=== PATIENT | female | born 1990 | race Caucasian/White ===

== ENCOUNTER 2016-12-24 21:36 | Emergency (ER) | payer MEDICAID ==
[2016-12-24] MEDS ORDERED: HALOPERIDOL LACT 5 MG/ML INJ ONE (21:45)
[2016-12-24] MEDS ORDERED: HALOPERIDOL LACT 5 MG/ML INJ IV ONE (21:46)
[2016-12-24 21:50] VITALS: TEMP 98.4
--- NOTE | 2016-12-24 21:50 | EDPHY ---
H & P Source: Patient, EMS Exam Limitations: No limitations - Medical/Surgical History Hx Asthma: No Hx Chronic Respiratory Disease: No Hx Diabetes: No Hx Cardiac Disease: No Hx Renal Disease: No Hx Cirrhosis: No Hx Alcoholism: No Other PMH: Seizures - Family History Significant Family History: Hypertension - Social History Smoking Status: Never smoked Alcohol Use: Occasionally Drug Use: Marijuana Time Seen by Provider: 12/24/16 21:41 HPI/ROS: CHIEF COMPLAINT: Altered mental status HISTORY OF PRESENT ILLNESS: The patient is a 26-year-old female with a history of seizure disorder on Lamictal whose boyfriend called EMS tonight because he collapsed in the bathroom had a couple of convulsions and then seem to have a panic attack. He states that this does not seem like her typical seizures. She is not postictal and did not have many contractions. There is no sign of injury. She has been drinking heavily today. Boyfriend denies any co ingestants. The patient is hyperventilating and asking where she is and if she has clothes on cetera. She then seems to calm down and fall asleep temporarily and then wake up again hyperventilating and panicking. She was given 5 of IV Valium by EMS. This did not change her symptoms or presentation. boyfriend states that she does have a history of an anxiety disorder as well. She does not take any medications other than Lamictal. REVIEW OF SYSTEMS: Unable to obtain secondary to condition EXAM: GENERAL: Well-appearing, well-nourished and in no acute distress. HEAD: Atraumatic, normocephalic. EYES: Mildly red conjunctiva, Pupils equal 3, round and reactive to light, extraocular movements intact, sclera anicteric. ENT: TMs normal, nares patent, oropharynx clear without exudates. Moist mucous membranes. NECK: Normal range of motion, supple without lymphadenopathy or JVD. LUNGS: Breath sounds clear to auscultation bilaterally and equal. No wheezes rales or rhonchi. HEART: Regular rate and rhythm without murmurs, rubs or gallops. ABDOMEN: Soft, nontender, normoactive bowel sounds. No guarding, no rebound. No masses appreciated. BACK: No CVA tenderness, no spinal tenderness, step-offs or deformities EXTREMITIES: Normal range of motion, no pitting or edema. No clubbing or cyanosis. NEUROLOGICAL: Cranial nerves II through XII grossly intact. Asking questions, painting, moving all extremities. 5/5 strength, normal movement in all extremities PSYCH: Anxious, hyperventilating, alternating with sleeping. Able to respond to environment SKIN: Warm, dry, normal turgor, no visible rashes or lesions. (Rolando Mariee) Constitutional: Initial Vital Signs Temperature (C) 36.9 C 12/24/16 21:36 Heart Rate 120 H 12/24/16 21:36 Respiratory Rate 24 H 12/24/16 21:36 Blood Pressure 124/77 H 12/24/16 21:36 O2 Sat (%) 98 12/24/16 21:36 O2 Delivery Mode Room Air Allergies/Adverse Reactions: No Known Allergies Allergy (Unverified 12/24/16 21:50) Home Medications: Medication Instructions Recorded lamoTRIgine [LamICTAL 100 MG (*)] 100 mg PO 12/24/16 Medical Decision Making - Diagnostics Imaging: Results: CT scan of the head was obtained. The results of the study are negative. The study was read by Dr. Vázquez. I viewed the images myself on the PACS system. ( Rolando Mariee) ED Course/Re-evaluation: 10:00 p.m. the patient is doing much better after Haldol. She is calm. No seizure-like activity. Boyfriend states that she may have taken something that he did not know about. 10:45 p.m. the patient is doing much better. She is sleepy but easily arousable. Her some boyfriend states that she is asking to go home. She is not yet sober. She has not yet provided a urinalysis. I suspect that she is using marijuana and possibly other substances well. She had red conjunctiva on arrival. Head CT ordered in this adult patient for trauma for the following indication: Loss of consciousness and intoxicated and altered Care transferred to Dr. Moreno at 11:00 p.m. Suspect the patient will continue to sober and be safe for discharge. I will prepare paperwork as such. (Rolando Mariee) 1:00 a.m.- The patient was stable throughout my shift. She was able to sober appropriately and was able to walk with a steady gait. She was discharged home with her boyfriend. She had no ongoing seizure like activity. U tox did reveal marijuana, otherwise negative. (Jo-Ann Moreno) Differential Diagnosis: Partial list of the Differential diagnosis considered include but were not limited to; substance abuse, anxiety, seizure, withdrawal, and although unlikely based on the history and physical exam, I also considered dystonic reaction, allergic reaction. (Rolando Mariee) - Data Points Laboratory Results: Laboratory Results 12/24/16 21:50 12/24/16 21:50 Medications Given: Discontinued Medications Haloperidol Lactate (Haldol Injection) 5 mg IV EDNOW ONE Stop: 12/24/16 21:47 Last Admin: 12/24/16 21:57 Dose: 5 mg Departure - Departure Disposition: Home, Routine, Self-Care Clinical Impression: Anxiety Alcohol intoxication Qualifiers: Complication of substance-induced condition: uncomplicated Qualified Code(s): F10.120 - Alcohol abuse with intoxication, uncomplicated Condition: Fair Instructions: Alcohol Intoxication (ED), Anxiety (ED) Referrals: Yomi Lopez MD [Medical Doctor] - As per Instructions
[2016-12-24 22:14] LABS: % IMMATURE GRANULYOCYTES 0.4 % (0.0-1.1); ABSOLUTE IMMATURE GRANULOCYTES 0.02 10^3/uL (0.00-0.10); ADD DIFF? NO; ADD MORPH? NO; ADD SCAN? NO; ATYPICAL LYMPHOCYTE FLAG 30 (0-99); FRAGMENT RBC FLAG 10 (0-99); HEMATOCRIT 42.7 % (38.0-47.0); HEMOGLOBIN 14.9 g/dL (12.6-16.3); LEFT SHIFT FLG 0 (0-99); LIPEMIA HEMOLYSIS FLAG 90 (0-99); MEAN CELL HEMOGLOBIN 31.5 pg (27.9-34.1); MEAN CELL HEMOGLOBIN CONCENTR. 34.9 g/dL (32.4-36.7); MEAN CELL VOLUME 90.3 fL (81.5-99.8); MEAN PLATELET VOLUME 9.7 fL (8.7-11.7); PLATELET CLUMPS FLAG 20 (0-99); PLATELET COUNT 295 10^3/uL (150-400); RED BLOOD CELL COUNT 4.73 10^6/uL (4.18-5.33); RED CELL DISTRIBUTION WIDTH 12.9 % (11.5-15.2)
[2016-12-24 22:23] LABS: ANION GAP 17 mEq/L (8-16); CALCIUM 9.7 mg/dL (8.5-10.4); CARBON DIOXIDE 20 mEq/l (22-31); CHLORIDE 109 mEq/L (97-110); CREATININE 0.8 mg/dL (0.6-1.0); ETHANOL SERUM 261 mg/dL (0-10); GLOMERULAR FILTRATION RATE > 60; GLUCOSE 84 mg/dL (70-100); POTASSIUM 4.7 mEq/L (3.5-5.2); SODIUM 146 mEq/L (134-144)
[2016-12-24 22:59] VITALS: RESP 16; O2SAT 94
[2016-12-25 00:04] VITALS: BP 103/64; PULSE 86
== END 2016-12-25 00:04 | disposition home or self-care (01) ==
DX: F41.9 Anxiety disorder, unspecified (principal); F10.120 Alcohol abuse with intoxication, uncomplicated
CPT/HCPCS: 80305; 96374; G0480

== ENCOUNTER 2017-04-09 23:01 | Emergency (ER) | payer MEDICAID, OTHER ==
[2017-04-09 23:16] VITALS: RESP 16
--- NOTE | 2017-04-09 23:21 | EDPHY ---
H & P Stated Complaint: found down, possible SZ Time Seen by Provider: 04/09/17 23:10 HPI/ROS: CHIEF COMPLAINT: Found down in today for a bathroom HISTORY OF PRESENT ILLNESS: The patient is a 26-year-old female who was found down in the bathroom at [facility]. She has a history of seizure disorder although she tells me it is undiagnosed and that no one understands it. She denies any incontinence. No evidence of oral trauma. She also complains of several old bruises to her legs and wrists from when she was arrested 2 days ago. She admits to drinking. She denies other drugs. REVIEW OF SYSTEMS: Constitutional: denies: chills, fever, recent illness, recent injury EENTM: denies: blurred vision, double vision, nose congestion Respiratory: denies: cough, shortness of breath Cardiac: denies: chest pain, irregular heart rate, lightheadedness, palpitations Gastrointestinal/Abdominal: denies: abdominal pain, diarrhea, nausea, vomiting, blood streaked stools Genitourinary: denies: dysuria, frequency, hematuria, pain Musculoskeletal: denies: joint pain, muscle pain Skin: See HPI Neurological: See HPI, denies: headache, numbness, paresthesia, tingling, dizziness, weakness Hematologic/Lymphatic: denies: blood clots, easy bleeding, easy bruising Immunologic/allergic: denies: HIV/AIDS, transplant EXAM: GENERAL: Well-appearing, appears inebriated HEAD: Atraumatic, normocephalic. EYES: Pupils equal round and reactive to light, extraocular movements intact, sclera anicteric, conjunctiva are normal. ENT: TMs normal, nares patent, oropharynx clear without exudates. Moist mucous membranes. NECK: Normal range of motion, supple without lymphadenopathy or JVD. LUNGS: Breath sounds clear to auscultation bilaterally and equal. No wheezes rales or rhonchi. HEART: Regular rate and rhythm without murmurs, rubs or gallops. ABDOMEN: Soft, nontender, normoactive bowel sounds. No guarding, no rebound. No masses appreciated. BACK: No CVA tenderness, no spinal tenderness, step-offs or deformities EXTREMITIES: Normal range of motion, no pitting or edema. No clubbing or cyanosis. NEUROLOGICAL: Cranial nerves II through XII grossly intact. Normal speech, normal gait. 5/5 strength, normal movement in all extremities, normal sensation PSYCH: Normal mood, normal affect. SKIN: Warm, dry, normal turgor, no visible rashes or lesions. Source: Patient, Police Exam Limitations: Intoxication - Personal History LMP (Females 10-55): Now Current Tetanus/Diphtheria Vaccine: Yes Current Tetanus Diphtheria and Acellular Pertussis (TDAP): Yes - Medical/Surgical History Hx Asthma: No Hx Chronic Respiratory Disease: No Hx Diabetes: No Hx Cardiac Disease: No Hx Renal Disease: No Hx Cirrhosis: No Hx Alcoholism: No Hx HIV/AIDS: No Hx Splenectomy or Spleen Trauma: No Other PMH: Undiagnosed Seizures, alcohol abuse - Family History Significant Family History: No pertinent family hx - Social History Smoking Status: Never smoked Alcohol Use: Sober Drug Use: None Constitutional: Initial Vital Signs Temperature (C) 36.7 C 04/09/17 23:10 Heart Rate 84 04/09/17 23:10 Respiratory Rate 16 04/09/17 23:10 Blood Pressure 109/71 04/09/17 23:10 O2 Sat (%) 95 04/09/17 23:10 O2 Delivery Mode Room Air Allergies/Adverse Reactions: No Known Allergies Allergy (Unverified 12/24/16 21:50) Home Medications: Medication Instructions Recorded lamoTRIgine [LamICTAL 100 MG (*)] 100 mg PO 12/24/16 Lorazepam 04/09/17 Medical Decision Making ED Course/Re-evaluation: The patient is clinically intoxicated. I doubt that she had a seizure. Lab work confirms this. We will [facility]. She is ambulatory. Differential Diagnosis: Partial list of the Differential diagnosis considered include but were not limited to; intoxication, seizure and although unlikely based on the history and physical exam, I also considered head injury, infection. I discussed these differential diagnoses and the plan with the patient as well as the usual and expected course. The patient understands that the diagnosis is provisional and that in medicine we are not always correct and that further workup is often warranted. Usual and customary warnings were given. All of the patient's questions were answered. The patient was instructed to return to the emergency department should the symptoms at all worsen or return, otherwise to followup with the physician as we discussed. - Data Points Laboratory Results: Laboratory Results 04/09/17 23:07 04/09/17 23:07 04/09/17 04/09/17 04/09/17 23:07 23:07 23:07 WBC 7.90 10^3/uL 10^3/uL (3.80-9.50) RBC 4.68 10^6/uL 10^6/uL (4.18-5.33) Hgb 14.6 g/dL g/dL (12.6-16.3) Hct 43.3 % % (38.0-47.0) MCV 92.5 fL fL (81.5-99.8) MCH 31.2 pg pg (27.9-34.1) MCHC 33.7 g/dL g/dL (32.4-36.7) RDW 13.5 % % (11.5-15.2) Plt Count 276 10^3/uL 10^3/uL (150-400) MPV 10.1 fL fL (8.7-11.7) Neut % (Auto) 40.7 % % (39.3-74.2) Lymph % (Auto) 49.2 % H % (15.0-45.0) [place] % (Auto) 8.5 % % (4.5-13.0) Eos % (Auto) 0.6 % % (0.6-7.6) Baso % (Auto) 0.6 % % (0.3-1.7) Nucleat RBC Rel Count 0.0 % % (0.0-0.2) Absolute Neuts (auto) 3.21 10^3/uL 10^3/uL (1.70-6.50) Absolute Lymphs (auto) 3.89 10^3/uL H 10^3/uL (1.00-3.00) Absolute Monos (auto) 0.67 10^3/uL 10^3/uL (0.30-0.80) Absolute Eos (auto) 0.05 10^3/uL 10^3/uL (0.03-0.40) Absolute Basos (auto) 0.05 10^3/uL 10^3/uL (0.02-0.10) Absolute Nucleated RBC 0.00 10^3/uL 10^3/uL (0-0.01) Immature Gran % 0.4 % % (0.0-1.1) Immature Gran # 0.03 10^3/uL 10^3/uL (0.00-0.10) Sodium 149 mEq/L H mEq/L (134-144) Potassium 3.9 mEq/L mEq/L (3.5-5.2) Chloride 107 mEq/L mEq/L (97-110) Carbon Dioxide 25 mEq/l mEq/l (22-31) Anion Gap 17 mEq/L H mEq/L (8-16) BUN 6 mg/dL L mg/dL (7-23) Creatinine 0.8 mg/dL mg/dL (0.6-1.0) Estimated GFR > 60 Glucose 90 mg/dL mg/dL (70-100) Calcium 9.0 mg/dL mg/dL (8.5-10.4) Beta HCG, Qual NEGATIVE Ethyl Alcohol 392 mg/dL H mg/dL (0-10) Departure - Departure Disposition: Home, Routine, Self-Care Clinical Impression: Alcohol intoxication Qualifiers: Complication of substance-induced condition: uncomplicated Qualified Code(s): F10.920 - Alcohol use, unspecified with intoxication, uncomplicated Condition: Fair Instructions: Alcohol Intoxication (ED) Referrals: Patient,NotPresent [Unknown] - As per Instructions
[2017-04-09 23:25] LABS: % IMMATURE GRANULYOCYTES 0.4 % (0.0-1.1); ABSOLUTE IMMATURE GRANULOCYTES 0.03 10^3/uL (0.00-0.10); ADD DIFF? NO; ADD MORPH? NO; ADD SCAN? NO; ATYPICAL LYMPHOCYTE FLAG 10 (0-99); FRAGMENT RBC FLAG 0 (0-99); HEMATOCRIT 43.3 % (38.0-47.0); HEMOGLOBIN 14.6 g/dL (12.6-16.3); LEFT SHIFT FLG 0 (0-99); LIPEMIA HEMOLYSIS FLAG 80 (0-99); MEAN CELL HEMOGLOBIN 31.2 pg (27.9-34.1); MEAN CELL HEMOGLOBIN CONCENTR. 33.7 g/dL (32.4-36.7); MEAN CELL VOLUME 92.5 fL (81.5-99.8); MEAN PLATELET VOLUME 10.1 fL (8.7-11.7); PLATELET CLUMPS FLAG 0 (0-99); PLATELET COUNT 276 10^3/uL (150-400); RED BLOOD CELL COUNT 4.68 10^6/uL (4.18-5.33); RED CELL DISTRIBUTION WIDTH 13.5 % (11.5-15.2)
[2017-04-09 23:31] LABS: ANION GAP 17 mEq/L (8-16); CARBON DIOXIDE 25 mEq/l (22-31); CHLORIDE 107 mEq/L (97-110); CREATININE 0.8 mg/dL (0.6-1.0); GLOMERULAR FILTRATION RATE > 60; GLUCOSE 90 mg/dL (70-100); POTASSIUM 3.9 mEq/L (3.5-5.2); SODIUM 149 mEq/L (134-144)
[2017-04-09 23:39] LABS: ETHANOL SERUM 392 mg/dL (0-10)
[2017-04-10 00:27] VITALS: BP 123/71; PULSE 72; TEMP 97.9; O2SAT 97
== END 2017-04-10 00:27 | disposition home or self-care (01) ==
LOC: EDUNIT#
DX: F10.920 Alcohol use, unspecified with intoxication, uncomplicated (principal)
CPT/HCPCS: G0480

== ENCOUNTER 2017-04-11 10:24 | Emergency (ER) | payer MEDICAID ==
[2017-04-11 10:37] VITALS: RESP 18; TEMP 98.2
--- NOTE | 2017-04-11 10:38 | EDPHY ---
H & P Time Seen by Provider: 04/11/17 10:25 HPI/ROS: CHIEF COMPLAINT: Seizure activity HISTORY OF PRESENT ILLNESS: Patient is a 26-year-old female with reported seizure disorder who presents to the emergency department after having multiple seizures. Most patient's history was obtained from EMS as the patient has some confusion on exam. EMS states that the patient's boyfriend told that she has a seizure disorder. She had her 1st seizure this morning at 5:00 a.m.. She has had multiple episodes (at least 5) since that time. She has recovered between seizures. EMS did not witness any seizure activity and that she seems "post- ictal." She has been improving enroute. Patient denies any complaints at this time. She does not recall the events. She has no headache, neck pain, chest pain, shortness of breath, abdominal pain, nausea or vomiting. REVIEW OF SYSTEMS: My complete review of systems is negative except as mentioned in the HPI. Past Medical/Surgical History: Seizure disorder Past surgical history: Denies Social history: The patient uses alcohol. She denies drug use. Smoking Status: Never smoked Physical Exam: Vitals noted GENERAL: Well-appearing, in no acute distress, alert. HEENT: Eyes normal to inspection, normal pharynx, no signs of dehydration. No signs of trauma NECK: No thyromegaly, no lymphadenopathy, supple. No C-spine tenderness to palpation. RESPIRATORY: Clear to auscultation bilaterally, no rales, rhonchi or wheezing. CVS: Regular rate and rhythm, no rubs, murmurs, or gallops. ABDOMEN: Soft, nontender, nondistended, no organomegaly. BACK: Normal to inspection, no CVA tenderness. No spinal tenderness palpation. SKIN: Normal color, no rash, warm, dry. No pallor. EXTREMITIES: No pedal edema, no calf tenderness, no Homans sign or cords, no joint swelling. NEURO/PSYCH: Higher functions: Alert and Oriented x2. Normal speech and cognition. Normal mood and affect. Cranial nerves: Normal as tested. Cerebellar: Normal as tested. Good finger to nose, good [id number], normal gait. Peripheral exam: Normal motor exam. Normal sensation. Normal reflexes. Constitutional: Initial Vital Signs Temperature (C) 36.8 C 04/11/17 10:24 Heart Rate 91 04/11/17 10:24 Respiratory Rate 18 04/11/17 10:24 Blood Pressure 116/72 04/11/17 10:24 O2 Sat (%) 93 04/11/17 10:24 O2 Delivery Mode Room Air Allergies/Adverse Reactions: No Known Allergies Allergy (Unverified 12/24/16 21:50) Home Medications: Medication Instructions Recorded lamoTRIgine [LamICTAL 100 MG (*)] 100 mg PO 12/24/16 Lorazepam 04/09/17 lamoTRIgine [Lamictal Xr] 200 mg PO DAILY 14 Days 04/11/17 Medical Decision Making ED Course/Re-evaluation: In the emergency department I met EMS on arrival. I took report from the tin tie machine operator automatic. I reviewed the patient's medical record. She was in the emergency department on 04/09/2017. At that time she was intoxicated and had reported seizure activity. Laboratory studies were ordered. Nursing staff performed EKG. EKG shows normal sinus rhythm, normal rate, normal axis, normal intervals. There are no ST or T-wave abnormalities. EKG is normal as interpreted by me. 1043: The patient's boyfriend arrived in her room. She was interactive. Patient recalls that she did not take her afternoon dose of Lamictal yesterday. She was instructed to continue to take her medications regularly. Patient normally takes Lamictal #2 100 mg tablets every afternoon. IV patient's laboratory studies. Of note her CO2 is low at 13. Her white count is normal. She is mildly anemic. 1150: Patient has no focal neurologic deficits. She is doing well. The patient was given Lamictal 200 mg orally in the emergency department. She was written for a prescription of Lamictal. She states her medications are in [place]. The patient was given warnings prior to leaving. She will return with worsening symptoms. She will continue to take her medications regularly. She will follow up with her neurologist. Differential Diagnosis: My differential includes but is not limited to seizure disorder, pseudoseizures , intoxication, drug use, subarachnoid hemorrhage, subdural hematoma, epidural hematoma, CVA - Data Points Laboratory Results: Laboratory Results 04/11/17 12:00 04/11/17 10:25 04/11/17 04/11/17 04/11/17 12:00 10:25 10:25 WBC 7.47 10^3/uL 10^3/uL (3.80-9.50) RBC 4.03 10^6/uL L 10^6/uL (4.18-5.33) Hgb 12.8 g/dL g/dL (12.6-16.3) Hct 37.3 % L % (38.0-47.0) MCV 92.6 fL fL (81.5-99.8) MCH 31.8 pg pg (27.9-34.1) MCHC 34.3 g/dL g/dL (32.4-36.7) RDW 13.3 % % (11.5-15.2) Plt Count 197 10^3/uL D 10^3/uL (150-400) MPV 10.0 fL fL (8.7-11.7) Neut % (Auto) 85.6 % H % (39.3-74.2) Lymph % (Auto) 6.6 % L % (15.0-45.0) [place] % (Auto) 7.1 % % (4.5-13.0) Eos % (Auto) 0.0 % L % (0.6-7.6) Baso % (Auto) 0.3 % % (0.3-1.7) Nucleat RBC Rel Count 0.0 % % (0.0-0.2) Absolute Neuts (auto) 6.40 10^3/uL 10^3/uL (1.70-6.50) Absolute Lymphs (auto) 0.49 10^3/uL L 10^3/uL (1.00-3.00) Absolute Monos (auto) 0.53 10^3/uL 10^3/uL (0.30-0.80) Absolute Eos (auto) 0.00 10^3/uL L 10^3/uL (0.03-0.40) Absolute Basos (auto) 0.02 10^3/uL 10^3/uL (0.02-0.10) Absolute Nucleated RBC 0.00 10^3/uL 10^3/uL (0-0.01) Immature Gran % 0.4 % % (0.0-1.1) Immature Gran # 0.03 10^3/uL 10^3/uL (0.00-0.10) Sodium 136 mEq/L mEq/L (134-144) Potassium 4.2 mEq/L mEq/L (3.5-5.2) Chloride 106 mEq/L mEq/L (97-110) Carbon Dioxide 13 mEq/l L D mEq/l (22-31) Anion Gap 17 mEq/L H mEq/L (8-16) BUN 10 mg/dL mg/dL (7-23) Creatinine 0.9 mg/dL mg/dL (0.6-1.0) Estimated GFR > 60 Glucose 98 mg/dL mg/dL (70-100) Calcium 9.4 mg/dL mg/dL (8.5-10.4) Beta HCG, Qual NEGATIVE Medications Given: Discontinued Medications Acetaminophen (Tylenol) 1,000 mg PO EDNOW ONE Stop: 04/11/17 11:40 Last Admin: 04/11/17 11:42 Dose: 1,000 mg Sodium Chloride (Ns) 1,000 mls @ 0 mls/hr IV ONCE ONE; Wide Open PRN Reason: Protocol Stop: 04/11/17 10:41 Last Admin: 04/11/17 10:57 Dose: 1,000 mls Departure - Departure Disposition: Home, Routine, Self-Care Clinical Impression: Seizure Condition: Good Instructions: Epilepsy (ED) Additional Instructions: Take your medications as directed. Return with worsening symptoms or concerns. Inform you neurologist you were in the emergency department. Referrals: rTenton Martin [Other] - 1-2 days without fail Prescriptions: lamoTRIgine [Lamictal Xr] 200 mg PO DAILY 14 Days
--- NOTE | 2017-04-11 10:39 | CPEKG ---
Heart Rate: 77 RR Interval: 779 P-R Interval: 116 QRSD Interval: 82 QT Interval: 384 QTC Interval: 435 P [place]: 26 QRS [place]: 71 T Wave [place]: 37 EKG Severity - NORMAL ECG - EKG Impression: SINUS RHYTHM Electronically Signed By: Eveline Moralez 11-Apr-2017 15:41:54
[2017-04-11] MEDS ORDERED: NS 1,000 ML IV ONE (10:40)
[2017-04-11 11:06] LABS: ANION GAP 17 mEq/L (8-16); CALCIUM 9.4 mg/dL (8.5-10.4); CARBON DIOXIDE 13 mEq/l (22-31); CHLORIDE 106 mEq/L (97-110); CREATININE 0.9 mg/dL (0.6-1.0); GLOMERULAR FILTRATION RATE > 60; GLUCOSE 98 mg/dL (70-100); POTASSIUM 4.2 mEq/L (3.5-5.2); SODIUM 136 mEq/L (134-144)
[2017-04-11] MEDS ORDERED: ACETAMINOPHEN 500 MG TAB PO ONE (11:39)
[2017-04-11 12:08] LABS: % IMMATURE GRANULYOCYTES 0.4 % (0.0-1.1); ABSOLUTE IMMATURE GRANULOCYTES 0.03 10^3/uL (0.00-0.10); ADD DIFF? NO; ADD MORPH? NO; ADD SCAN? NO; ATYPICAL LYMPHOCYTE FLAG 10 (0-99); FRAGMENT RBC FLAG 0 (0-99); HEMATOCRIT 37.3 % (38.0-47.0); HEMOGLOBIN 12.8 g/dL (12.6-16.3); LEFT SHIFT FLG 10 (0-99); LIPEMIA HEMOLYSIS FLAG 90 (0-99); MEAN CELL HEMOGLOBIN 31.8 pg (27.9-34.1); MEAN CELL HEMOGLOBIN CONCENTR. 34.3 g/dL (32.4-36.7); MEAN CELL VOLUME 92.6 fL (81.5-99.8); PLATELET CLUMPS FLAG 0 (0-99); PLATELET COUNT 197 10^3/uL (150-400); RED BLOOD CELL COUNT 4.03 10^6/uL (4.18-5.33); RED CELL DISTRIBUTION WIDTH 13.3 % (11.5-15.2)
[2017-04-11] MEDS ORDERED: lamoTRIgine 100 MG TAB PO ONE (12:24)
[2017-04-11 12:50] VITALS: BP 125/90; PULSE 74; O2SAT 100
== END 2017-04-11 12:48 | disposition home or self-care (01) ==
LOC: EDUNIT#
DX: G40.909 Epilepsy, unspecified, not intractable, without status epilepticus (principal)

== ENCOUNTER 2017-08-30 03:03 | Emergency (ER) | payer MEDICAID, OTHER ==
[2017-08-30 03:10] VITALS: TEMP 97.7
[2017-08-30] MEDS ORDERED: TDAP ADULT 0.5 ML INJ (BOOSTRIX) IM ONE (03:45)
--- NOTE | 2017-08-30 03:53 | EDPHY ---
H & P Stated Complaint: pt says she fell - hitting a table w/ back head, says lac wont stop bleedin Time Seen by Provider: 08/30/17 03:19 HPI/ROS: Chief Complaint: Head injury status post seizure HPI: 27-year-old woman with a history of seizure disorder head up seizure this morning. The patient states she fell back and believe she hit her head on a coffee table. Her blood friend found her. She was postictal. He has a laceration in the back of her head. Patient is now awake and alert. Denies headache. Has some tenderness around the laceration site. No nausea or vomiting. No neck pain. She is compliant with medication. Patient states her last seizure was about 1 month ago. She takes lamotrigine. ROS: 10 point Review of Systems is negative except as noted in the HPI. PMH: Seizure disorder Social History: No smoking, no alcohol, no recreational drug use Family History: non-contributory Physical Exam: Gen: Awake, Alert, Airway Intact HEENT: Head: She has a 3 cm horizontal laceration on her occiput with no deep tissue involvement Eyes: PERRLA, EOMI Nose: No epistaxis Mouth: Normal dentition, Airway patent Face: No deformity Neck: non-tender, no stepoff, Full ROM without pain Chest: non-tender, lungs CTA Heart: normal heart tones Abd: soft, non-tender, atraumatic Pelvis: non-tender, stable to AP and Lateral compression Back: atraumatic, no midline tenderness Ext: atramatic, full ROM Skin: no rash Neuro: CN II-XII intact, Strength 5/5 in all extremities, sensation intact in all extremities - Medical/Surgical History Hx Asthma: No Hx Chronic Respiratory Disease: No Hx Diabetes: No Hx Cardiac Disease: No Hx Renal Disease: No Hx Cirrhosis: No Hx Alcoholism: No Hx HIV/AIDS: No Hx Splenectomy or Spleen Trauma: No Other PMH: seizures, alcohol abuse - Social History Smoking Status: Current every day smoker Constitutional: Initial Vital Signs Temperature (C) 36.5 C 08/30/17 03:06 Heart Rate 97 08/30/17 03:06 Respiratory Rate 16 08/30/17 03:06 Blood Pressure 133/85 H 08/30/17 03:06 O2 Sat (%) 98 08/30/17 03:06 O2 Delivery Mode Room Air Allergies/Adverse Reactions: No Known Allergies Allergy (Verified 08/30/17 03:10) Home Medications: Medication Instructions Recorded Lorazepam 04/09/17 lamoTRIgine [Lamictal Xr] 200 mg PO BID 08/30/17 Medical Decision Making Procedures: Procedure: Laceration repair. Verbal consent was obtained from the patient. The 3 cm laceration on the occiput was anesthetized in the usual fashion. The wound was irrigated, draped and explored to its base with a gloved finger. There were no deep structures involved. No tendon injury was identified. The wound was repaired with 8 bob. The wound repair was uncomplicated. The procedure was performed by myself. - Data Points Medications Given: Discontinued Medications Diphtheria/Tetanus/Acell Pertussis (Boostrix) 0.5 ml IM .ONCE ONE Stop: 08/30/17 03:46 Last Admin: 08/30/17 03:49 Dose: 0.5 ml Departure - Departure Disposition: Home, Routine, Self-Care Clinical Impression: Seizure, Scalp laceration Condition: Good Instructions: Laceration (ED), Epilepsy (ED), Staple Care (ED) Additional Instructions: [place] need to be removed in 10 days. Return to the emergency department for increasing seizures, worsening headache, nausea, vomiting, confusion, fevers, chills, or any other concerns. Follow up with primary care physician in 3-4 days for further evaluation. Referrals: NONE *PRIMARY CARE P,. [Primary Care Provider] - As per Instructions
[2017-08-30 04:22] VITALS: BP 124/61; PULSE 80; RESP 18; O2SAT 97
== END 2017-08-30 04:21 | disposition home or self-care (01) ==
PROC: 0HQ0XZZ Repair Scalp Skin, External Approach (ICD-10-PCS; principal; 2017-08-30)
DX: S01.01XA Laceration without foreign body of scalp, initial encounter (principal); G40.909 Epilepsy, unspecified, not intractable, without status epilepticus; F17.200 Nicotine dependence, unspecified, uncomplicated; Z23 Encounter for immunization; W01.190A Fall on same level from slipping, tripping and stumbling with subsequent striking against furniture, initial encounter

== ENCOUNTER 2018-02-08 17:14 | Emergency (ER) | payer MEDICAID ==
--- NOTE | 2018-02-08 18:56 | EDPHY ---
H & P Time Seen by Provider: 02/08/18 18:33 HPI/ROS: CHIEF COMPLAINT: Constipation HISTORY OF PRESENT ILLNESS: 27-year-old female presents with constipation. 2 month history of constipation and decreased bowel movements, despite using laxatives and stool softeners. Last bowel movement was 1 week ago and a very small amount. Associated with gradually increasing abdominal distension and a 10 lb weight gain. No nausea, vomiting or abdominal pain. Recently switched to a gluten free diet. REVIEW OF SYSTEMS: Constitutional: No fever, no chills Eyes: No visual changes ENT: No sore throat Respiratory: No cough, no shortness of breath Cardiac: No chest pain Gastrointestinal: No nausea, no vomiting, no abdominal pain Genitourinary: no dysuria Musculoskeletal: No leg pain or swelling Skin: No rash Neurological: No headache, no weakness Psychiatric: No depression Past Medical/Surgical History: Social History: Smoking Status: Current every day smoker Physical Exam: General Appearance: Alert, pleasant Eyes: Pupils equal and round, no conjunctival pallor or injection ENT, Mouth: Mucous membranes moist Neck: Normal inspection Respiratory: Lungs are clear to auscultation Cardiovascular: Regular rate and rhythm Gastrointestinal: Abdomen is soft, distended, nontender Rectal exam: No stool in vault Neurological: A&O, nonfocal, normal gait Skin: Warm and dry Extremities: Nontender, no pedal edema Psychiatric: Mood and affect normal Constitutional: Initial Vital Signs Temperature (C) 36.7 C 02/08/18 17:31 Heart Rate 92 02/08/18 17:31 Respiratory Rate 16 02/08/18 17:31 Blood Pressure 137/87 H 02/08/18 17:31 O2 Sat (%) 96 02/08/18 17:31 O2 Delivery Mode Room Air Allergies/Adverse Reactions: No Known Allergies Allergy (Verified 08/30/17 03:10) Home Medications: Medication Instructions Recorded lamoTRIgine [Lamictal Xr] 200 mg PO BID 08/30/17 Medical Decision Making ED Course/Re-evaluation: Soapsuds enema given, after which the patient had a very large bowel movement and felt much better. Abdomen is soft and nontender. Dietary instructions given. She was instructed to follow up with her primary care physician. If she has recurrent severe constipation, she will follow up with GI. Differential Diagnosis: Differential diagnosis includes though it is not limited to appendicitis, cholecystitis, diverticulitis, pyelonephritis, bowel perforation, bowel obstruction. - Data Points Laboratory Results: Laboratory Results 02/08/18 18:57 02/08/18 18:57 02/08/1818 02/08/18 18:57 18:57 18:57 WBC 7.15 10^3/uL 10^3/uL (3.80-9.50) RBC 4.39 10^6/uL 10^6/uL (4.18-5.33) Hgb 13.1 g/dL g/dL (12.6-16.3) Hct 38.6 % % (38.0-47.0) MCV 87.9 fL fL (81.5-99.8) MCH 29.8 pg pg (27.9-34.1) MCHC 33.9 g/dL g/dL (32.4-36.7) RDW 12.6 % % (11.5-15.2) Plt Count 212 10^3/uL 10^3/uL (150-400) MPV 10.0 fL fL (8.7-11.7) Neut % (Auto) 58.3 % % (39.3-74.2) Lymph % (Auto) 31.2 % % (15.0-45.0) Callahan % (Auto) 9.1 % % (4.5-13.0) Eos % (Auto) 0.8 % % (0.6-7.6) Baso % (Auto) 0.3 % % (0.3-1.7) Nucleat RBC Rel Count 0.0 % % (0.0-0.2) Absolute Neuts (auto) 4.17 10^3/uL 10^3/uL (1.70-6.50) Absolute Lymphs (auto) 2.23 10^3/uL 10^3/uL (1.00-3.00) Absolute Monos (auto) 0.65 10^3/uL 10^3/uL (0.30-0.80) Absolute Eos (auto) 0.06 10^3/uL 10^3/uL (0.03-0.40) Absolute Basos (auto) 0.02 10^3/uL 10^3/uL (0.02-0.10) Absolute Nucleated RBC 0.00 10^3/uL 10^3/uL (0-0.01) Immature Gran % 0.3 % % (0.0-1.1) Immature Gran # 0.02 10^3/uL 10^3/uL (0.00-0.10) Sodium 139 mEq/L mEq/L (135-145) Potassium 4.3 mEq/L mEq/L (3.5-5.2) Chloride 103 mEq/L mEq/L (97-110) Carbon Dioxide 25 mEq/l mEq/l (22-31) Anion Gap 11 mEq/L mEq/L (8-16) BUN 17 mg/dL mg/dL (7-23) Creatinine 0.9 mg/dL mg/dL (0.6-1.0) Estimated GFR > 60 Glucose 75 mg/dL mg/dL (70-100) Calcium 9.4 mg/dL mg/dL (8.5-10.4) Beta HCG, Qual NEGATIVE Departure - Departure Disposition: Home, Routine, Self-Care Clinical Impression: Constipation Qualifiers: Constipation type: slow transit constipation Qualified Code(s): K59.01 - Slow transit constipation Condition: Good Instructions: Constipation (ED), High Fiber Diet (ED), Fleet Enema (ED) Referrals: Sloane Mccauley MD [Primary Care Provider] - As per Instructions (Call to make an appointment.)
[2018-02-08 19:07] LABS: PLATELET COUNT 212 10^3/uL (150-400)
[2018-02-08 20:50] VITALS: BP 111/67
== END 2018-02-08 20:50 | disposition home or self-care (01) ==
DX: K59.01 Slow transit constipation (principal); F17.200 Nicotine dependence, unspecified, uncomplicated